=== PATIENT | male | born 1960 | race Hispanic/Latino ===

== ENCOUNTER → 2018-11-25 | Outpatient (CLI) | payer OTHER ==
[~2018-11-25] MED LIST: AMLODIPINE BESYL5 MG PO; CALCIUM PO; DIATRIZOATE MEGL/DIATRIZOA SOD 30 ML BTL PO ONE; FUROSEMIDE40 MG PO; IOPAMIDOL 370 MG/ML 200 ML INFUS..BTL INJ ONE; JANUMET 50-1,01 EACH PO; LOSARTAN POTASS25 MG PO; MAGNESIUM PO; POTASSIUM99 MG PO; SODIUM CHLORIDE 0.9% 50ML 50 ML ONE; VITAMIN B-121000 MCG PO
[2018-11-25 09:42] LABS: BLOOD UREA NITROGEN 15 mg/dL (7-26); BUN/CREATININE RATIO 16 (6-25); CREATININE, SERUM 0.92 mg/dL (0.72-1.25); EST GLOMERULAR FILTRATION RATE > 60 ML/MIN (60-)
--- NOTE | 2018-11-25 11:59 | Diagnostic Imaging Report ---
EXAM: CT Abdomen and Pelvis WITH contrast INDICATION: Abdominal Pain COMPARISON: None. TECHNIQUE: Abdomen and pelvis were scanned utilizing a multidetector helical scanner from the lung base to the pubic symphysis after administration of IV contrast. Coronal and sagittal reformations were obtained. Routine protocol was performed. Scan was performed when during portal venous phase. IV CONTRAST: 100 mL of Isovue-370 ORAL CONTRAST: Gastrografin diluted in water (total 900mL) COMPLICATIONS: None RADIATION DOSE: Total DLP: (DLP x 0.015 x size factor) 729 mGy*cm CTDIvol has been reviewed. It is below the limits set by the Radiation Protocol Committee (RPC). FINDINGS: LINES and TUBES: None. LOWER THORAX: Mild left lower lobe subsegmental atelectasis. Right lower lobe calcific granuloma. No focal consolidation. Elevation of the left hemidiaphragm. HEPATOBILIARY: No evidence of focal lesion. No biliary ductal dilation. GALLBLADDER: Cholelithiasis. No gallbladder wall thickening or pericholecystic fluid. Nondilated common bile duct. SPLEEN: Status post splenectomy. Hypertrophied splenules. PANCREAS: No focal masses or ductal dilatation. ADRENALS: No adrenal nodules KIDNEYS/URETERS: Kidneys enhance symmetrically. No focal mass. No hydronephrosis. No renal calculi. Bilateral simple renal cysts, measuring up to 3.3 cm on left and 4.3 cm on the right. GI TRACT: No evidence of wall thickening or distension. Appendix is normal. PELVIC ORGANS/BLADDER: Unremarkable. LYMPH NODES: No lymphadenopathy. VESSELS: Unremarkable. PERITONEUM / RETROPERITONEUM: No free air or fluid. BONES AND SOFT TISSUES: Small right inguinal hernia containing fat. Minimal degenerative changes of the visualized spine and both hip joints. CONCLUSION: No acute findings in the abdomen or pelvis. Signed by: Rosales Lea MD on 11/25/2018 11:56 AM
== END ==
LOC: CT 08:37
PROVIDERS: ATTEND Internal Medicine Gastroenterology
DX: R10.30 Lower abdominal pain, unspecified (principal)
CPT/HCPCS: 36415; 74177; 82565; 84520; Q9967

== ENCOUNTER → 2018-12-02 | Outpatient (CLI) | payer OTHER ==
[~2018-12-02] MED LIST changes: -DIATRIZOATE MEGL/DIATRIZOA SOD 30 ML BTL PO ONE; +HYOSCYAMINE 0.125 MG TAB ONE; -IOPAMIDOL 370 MG/ML 200 ML INFUS..BTL INJ ONE; -SODIUM CHLORIDE 0.9% 50ML 50 ML ONE
[2018-12-02 17:23] LABS: BASOPHILS # (AUTO) 0.1 (0.0-0.1); BASOPHILS % 0.7 % (0.0-1.0); EOSINOPHILS # (AUTO) 0.2 (0.0-0.4); EOSINOPHILS % 2.2 % (0.0-6.0); HEMATOCRIT 42.7 % (38.2-49.6); HEMOGLOBIN 14.1 g/dL (14.0-18.0); LYMPHOCYTES # (AUTO) 2.5 (1.0-3.2); LYMPHOCYTES % 31.6 % (18.0-39.1); MEAN CORPUSCULAR HEMOGLOBIN 28.9 pg (28-32); MEAN CORPUSCULAR VOLUME 87.5 fL (81-99); MONOCYTES # (AUTO) 0.8 (0.2-0.8); MONOCYTES % 10.3 % (4.4-11.3); NEUTROPHILS # (AUTO) 4.4 (2.1-6.9); PLATELET COUNT 312 x10e3/uL (140-360); RED BLOOD COUNT 4.88 x10e6/uL (4.3-5.7); RED CELL DISTRIBUTION WIDTH 13.7 % (11.7-14.4)
--- NOTE | 2018-12-03 15:00 | Diagnostic Imaging Report ---
PROCEDURE: X-RAY CHEST, TWO VIEWS COMPARISON: CT abdomen and pelvis 11/25/2018. INDICATIONS: pre-operative chest x-ray for colon screening FINDINGS: Marked left hemidiaphragmatic elevation is unchanged. No airspace consolidation or pleural effusion. Right lower lobe calcified granuloma unchanged. Cardiomediastinal contour is within normal limits when accounting for left hemidiaphragmatic elevation. No overt pulmonary edema. No acute osseous abnormality. Posttraumatic deformity of the midshaft of the right clavicle. Healed fracture deformities of the left seventh, eighth, and ninth ribs. CONCLUSION: Left hemidiaphragmatic elevation unchanged compared to CT 11/25/2018. No acute cardiopulmonary abnormality. Dictated by: Shaheen Browning M.D. on 12/03/2018 at 15:04 Electronically approved by: Shaheen Browning M.D. on 12/03/2018 at 15:04
--- OUTSIDE RECORDS SUMMARY | 2018-12-04 10:12 | XMS REPORT | Clinical Summary ---
Author Author [facility] [employer] [facility] [employer] [address] [facility] Address Unknown Phone Unavailable Care Team Providers Care Design Project Manager Name Role Phone PCP Unavailable Allergies Not on File Medications Not on file Active Problems Patient Care Coordination Note Patient ID: Mr. Jauregui Past medical history includes HTN, COPD and DM type II CC: Initial Visit HPI : The patient is here for an initial visit in the Heart Failure Clinic for evaluation and treatment primary hypertension, he was reffered to us by Dr. Valentine zambrano from [facility]. Past Medical History HTN COPD DM Type II Surgical History Social History Family History Allergies Pertinent Tests: Assessment : HTN DM Assessment and Plan No additional problems on file Encounters Care Team Description Date Type Specialty Bouchra Smith 10/12/2018 Abstract Transplant Bouchra Smith 09/25/2018 Abstract Transplant Sachi Monreal MD Hypertension, unspecified type (Primary Dx); Type 2 diabetes mellitus with complication, unspecified whether usp insulin use (HCC) 09/23/2018 Office Visit Transplant Anastacio Miller RN 09/23/2018 Orders Only Transplant after 12/03/2017 Social History Date Tobacco Use Types Packs/Day Years Used Never Assessed Sex Assigned at Date Recorded Not on file Industry Job Start Date Occupation Not on file Not on file Not on file Travel End Travel History Travel Start No recent travel history available. Last Filed Vital Signs Not on file Plan of Treatment Not on file Results Not on fileafter 12/03/2017 Insurance Payer Benefit Subscriber ID Type Phone Address Plan / Group [facility] COMMUNITY xxxxxxxxxxxx HMO/POS [phone] [facility] CHOICE EXCHANGE (Home) [place] [address]
--- OUTSIDE RECORDS SUMMARY | 2018-12-04 10:12 | XMS REPORT ---
Author Author [facility] Address Unknown Phone Unavailable Care Team Providers Care Occupational Therapy Professor Name Role Phone ALDA MEEHAN Unavailable Unavailable Problems This patient has no known problems. Allergies, Adverse Reactions, Alerts This patient has no known allergies or adverse reactions. Medications This patient has no known medications. Results Test Description Test Time Test Comments Text Results Atomic Results Result Comments CHEST 2 VIEWS 2018-12-03 15:04:00 [place] [address] Patient Name: MEGAN BURK MR #: [id number] : 1960 Age/Sex: 58/M Req #: [id number] [facility] Physician: Ordered by: ALDA MEEHAN MD Report #: [id number] Location: OR Room/Bed: Procedure: [id number] DX/CHEST 2 VIEWS Exam Date: 12/03/18 Exam Time: 1420 REPORT STATUS: Signed PROCEDURE: X-RAY CHEST, TWO VIEWS COMPARISON: CT abdomen and pelvis 11/25/2018. INDICATIONS: pre-operative chest x-ray for colon screening FINDINGS: Marked left hemidiaphragmatic elevation is unchanged. No airspace consolidation or pleural effusion. Right lower lobe calcified granuloma unchanged. Cardiomediastinal contour is within normal limits when accounting for left hemidiaphragmatic elevation. No overt pulmonary edema. No acute osseous abnormality. Posttraumatic deformity of the midshaft of the right clavicle. Healed fracture deformities of the left seventh, eighth, and ninth ribs. CONCLUSION: Left he midiaphragmatic elevation unchanged compared to CT 11/25/2018. No acute cardiopulmonary abnormality. Dictated by: Soy Darden M.D. on 12/03/2018 at 15:04 Electronically approved by: Soy Darden M.D. on 12/03/2018 at 15:04 Dictated By: SOY DARDEN MD 1504 Transcribed By: MURALI on 12/03/18 1504 COPY TO: ALDA MEEHAN MD CT ABDOMEN/PELVIS W 2018-11-25 11:39:00 [place] [address] Patient Name: MEGAN BURK MR #: [id number] : 1960 Age/Sex: 58/M Req #: [id number] Adm Physician: Ordered by: ALDA MEEHAN MD Report #: [id number] Location: CT Room/Bed: Procedure: [id number] CT/CT ABDOMEN/PELVIS W Exam Date: 11/25/18 Exam Time: 1000 REPORT STATUS: Signed EXAM: CT Abdomen and Pelvis WITH contrast INDICA TION: Abdominal Pain COMPARISON: None. TECHNIQUE: Abdomen and pelvis were scanned utilizing a multidetector helical scanner from the lung base to the pubic symphysis after administration of IV contrast. Coronal and sagittal reformations were obtained. Routine protocol was performed. Scan was performed when during portal venous phase. IV CONTRAST: 100 mL of Isovue-370 ORAL CONTRAST: Gastrografin diluted in water (total 900mL) COMPLICATIONS: None RADIATION DOSE: Total DLP: (DLP x 0.015 x size factor) 729 mGy*cm CTDIvol has been reviewed. It is below the limits set by the Radiation Protocol Committee (RPC). FINDINGS: LINES and TUBES: None. LOWER THORAX: Mild left lower lobe subsegmental atelectasis. Right lower lobe calcific granuloma. No focal consolidation. Elevation of the left hemidiaphragm. HEPATOBILIARY: No evidence of focal lesion. No biliary ductal dilation. GALLBLADDER: Cholelithiasis. No gallbladder wall thickening or pericholecystic fluid. Nondilated common bile duct. SPLEEN: Status post splenectomy. Hypertrophied splenules. PANCREAS: No focal masses or ductal dilatation. ADRENALS: No adrenal nodules KIDNEYS/URETERS: Kidneys enhance symmetrically. No focal mass. No hydronephrosis. No renal calculi. Bilateral simple renal cysts, measuring up to 3.3 cm on left and 4.3 cm on the right. GI TRACT: No evidence of wall thickening or distension. Appendix is normal. PELVIC ORGANS/BLADDER: Unremarkable. LYMPH NODES: No lymphadenopathy. VESSELS: Unremarkable. PERITONEUM / RETROPERITONEUM: No free air or fluid. BONES AND SOFT TISSUES: Small right inguinal hernia containing fat. Minimal degenerative changes of the visualized spine and both hip joints. CONCLUSION: No acute findings in the abdomen or pelvis. Signed by: Noman Capellan MD on 11/25/2018 11:56 AM Dictated By: NOAMN CAPELLAN MD 1159 Transcribed By: KIMBERLI on 11/25/18 1156 COPY TO: ALDA MEEHAN MD
== END ==
LOC: RAD 05:00 → OR 12-04 10:00 → EDSTATUS 12-04 12:00
PROVIDERS: ATTEND Internal Medicine Gastroenterology
DX: Z01.818 Encounter for other preprocedural examination (principal); Z12.11 Encounter for screening for malignant neoplasm of colon; R11.2 Nausea with vomiting, unspecified; R10.30 Lower abdominal pain, unspecified; R14.0 Abdominal distension (gaseous); Z53.8 Procedure and treatment not carried out for other reasons
CPT/HCPCS: 36415; 71046; 85025; 93005

== ENCOUNTER → 2018-12-12 | Day surgery (SDC) | payer OTHER ==
[~2018-12-12] MED LIST changes: +FENTANYL CITRATE/PF 100MCG/2 ML INJ ONE; +GLUCAGON FOR INJ 1 MG VIAL ONE; +MIDAZOLAM HCL 2 MG/2 ML VIAL ONE; +PROPOFOL IV EMULSION 10 MG/ML 50 ML VIAL ONE
--- OUTSIDE RECORDS SUMMARY | 2018-12-12 12:20 | XMS REPORT | Clinical Summary ---
Author Author [facility] [employer] [facility] [email or web address] [facility] Address Unknown Phone Unavailable Care Team Providers Care Oven Stripper Name Role Phone PCP Unavailable Allergies Not [...] to us by Dr. Valentine zambrano from [facility]. Past Medical History HTN COPD [...] 2 diabetes mellitus with complication, unspecified whether halfway insulin use (HCC) 09/23/2018 Office Visit Transplant Anastacio Miller RN 09/23/2018 Orders Only Transplant after 12/11/2017 Social History Date Tobacco Use Types Packs/Day Years Used Never Assessed Sex Assigned at Date Recorded Not on file Industry Job Start Date Occupation Not on file Not on file Not on file Travel End Travel History Travel Start No recent travel history available. Last Filed Vital Signs Not on file Plan of Treatment Not on file Results Not on fileafter 12/11/2017 Insurance Payer Benefit Subscriber ID Type Phone Address Plan / Group [facility] COMMUNITY xxxxxxxxxxxx HMO/POS [phone] [facility] CHOICE EXCHANGE (Home) [place] [address]
[2018-12-12 16:00] VITALS: BP 127/78
--- NOTE | 2018-12-12 16:18 | Operative Report ---
DATE OF PROCEDURE: 12/12/2018 SURGEON: Tomi Vargas MD PROCEDURE: Colonoscopy and polypectomy. INDICATION FOR COLONOSCOPY: Colorectal cancer screening, decreased stool caliber. MEDICATIONS: The patient was done under MAC, please see anesthesiologist's note. PROCEDURE IN DETAIL: With the patient in left lateral decubitus position, flexible fiberoptic Olympus colonoscope was inserted into the rectum with ease and advanced all the way to the cecum. There was ? everted diverticulum noted in the cecum and that was biopsied. The scope was then withdrawn slowly, mucosa overlying the ascending, transverse, descending, and sigmoid appeared to be within normal limits. Two polyps were hot biopsied from the rectum. The scope was then retroflexed into the distal rectum and small internal hemorrhoids were noted, none of which was actively bleeding. The scope was then straightened out, it was subsequently withdrawn. The patient tolerated the procedure well. IMPRESSION: 1. ? everted diverticulum, cecum, biopsied. 2. Rectal polyps x2, hot biopsied. 3. Internal hemorrhoids, none actively bleeding. PLAN: Follow up histology. Initiate high-fiber, low-fat diet. Initiate high-fiber supplement. The patient might benefit from a followup colonoscopy in 5 years. Tomi Vargas MD [facility] [place] /[id number] cc: Valentine Hewitt MD
== END | disposition home or self-care (01) ==
LOC: OR 12:18
PROVIDERS: ATTEND Internal Medicine Gastroenterology
DX: K52.9 Noninfective gastroenteritis and colitis, unspecified (principal); K62.1 Rectal polyp; K64.8 Other hemorrhoids; K21.9 Gastro-esophageal reflux disease without esophagitis; J45.909 Unspecified asthma, uncomplicated; I25.10 Atherosclerotic heart disease of native coronary artery without angina pectoris; I10 Essential (primary) hypertension; I25.2 Old myocardial infarction; E11.9 Type 2 diabetes mellitus without complications; F41.9 Anxiety disorder, unspecified; Z68.32 Body mass index [BMI] 32.0-32.9, adult
CPT/HCPCS: 45380; 45384; J1610; J2250; J2704; J3010